=== PATIENT | male | born 1970 | race Caucasian/White ===

== ENCOUNTER 2018-09-22 11:17 | Emergency (ER) | payer BC, OTHER ==
[2018-09-22] MEDS ORDERED: TDAP ADULT 0.5 ML INJ (BOOSTRIX) IM ONE (12:38)
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
[2018-09-22 14:31] VITALS: BP 115/68
== END 2018-09-22 14:31 | disposition home or self-care (01) ==
DX: S63.257A Unspecified dislocation of left little finger, initial encounter (principal); S01.21XA Laceration without foreign body of nose, initial encounter; Z23 Encounter for immunization; V18.0XXA Pedal cycle driver injured in noncollision transport accident in nontraffic accident, initial encounter; Y92.480 Sidewalk as the place of occurrence of the external cause; Y93.55 Activity, bike riding
CPT/HCPCS: L3925